=== PATIENT | male | born 1995 | race Caucasian/White ===

== ENCOUNTER 2016-10-28 19:52 | Emergency (ER) | payer MEDICAID ==
[2016-10-28 20:44] LABS: ABSOLUTE BASOPHILS # (AUTO) 0.1 10^3/uL (0.0-0.2); ABSOLUTE EOSINOPHILS # (AUTO) 0.1 10^3/uL (0.0-0.6); ABSOLUTE LYMPHOCYTES (AUTO) 1.7 10^3/uL (0.5-4.7); ABSOLUTE MONOCYTES (AUTO) 0.8 10^3/uL (0.1-1.4); ABSOLUTE NEUT (AUTO) 11.1 10^3/uL (1.7-8.2); BASOPHILS % (AUTO) 0.5 % (0-2); EOSINOPHILS % (AUTO) 0.8 % (0-6); HEMATOCRIT 49.9 % (37.9-51.0); HEMOGLOBIN 16.7 g/dL (13.5-17.0); HGB HCT DIFFERENCE 0.2; LYMPHOCYTES % (AUTO) 12.2 % (13-45); MEAN CORPUSCULAR HEMOGLOBIN 28.8 pg (27.0-33.4); MEAN CORPUSCULAR HGB CONC 33.5 g/dL (32.0-36.0); MEAN CORPUSCULAR VOLUME 86 fl (80-97); MONOCYTES % (AUTO) 5.7 % (3-13); RED BLOOD COUNT 5.82 10^6/uL (4.35-5.55); RED CELL DISTRIBUTION WIDTH 12.4 % (11.5-14.0); SEGMENTED NEUTROPHILS % (AUTO) 80.8 % (42-78); WHITE BLOOD COUNT 13.7 10^3/uL (4.0-10.5)
[2016-10-28 21:11] LABS: ALANINE AMINOTRANSFERASE 59 U/L (21-72); ALBUMIN 4.9 g/dL (3.5-5.0); ALKALINE PHOSPHATASE 60 U/L (38-126); ANION GAP 14 (5-19); ASPARTATE AMINO TRANSFERASE 34 U/L (17-59); BILIRUBIN,DIRECT 0.3 mg/dL (0.0-0.4); BLOOD UREA NITROGEN 19 mg/dL (7-20); CALCIUM 10.1 mg/dL (8.4-10.2); CARBON DIOXIDE 24 mmol/L (22-30); CHLORIDE 105 mmol/L (98-107); CREATININE RESULT 0.83 mg/dL (0.52-1.25); GLUCOSE 138 mg/dL (75-110); POTASSIUM 4.6 mmol/L (3.6-5.0); SODIUM 143.1 mmol/L (137-145); TOTAL PROTEIN 7.9 g/dL (6.3-8.2)
[2016-10-28 21:13] LABS: ALCOHOL < 10 mg/dL (NONE DETECTED)
[2016-10-28] MEDS ORDERED: LORAZEPAM INJ 2 MG/1 ML VIAL IM ONE (22:29)
--- NOTE | 2016-10-28 22:29 | ER Document Report ---
ED Psych Disorder / Suicide - General Mode of Arrival: Medic Information source: Patient, Emergency Med Personnel TRAVEL OUTSIDE OF THE [place] IN LAST 30 DAYS: No - HPI Patient complains to provider of: Overdose Onset: This afternoon - see HPI notes Similar symptoms previously: No Recently seen / treated by doctor: No <ROB WOEN - Last Filed: 10/28/16 23:51> <SKYLER SALDAÑA - Last Filed: 10/29/16 04:52> - General Chief Complaint: Overdose Stated Complaint: POSSIBLE OVERDOSE Time Seen by Provider: 10/28/16 20:24 Notes: Patient is a 21 year old male presenting to the emergency department for Tylenol overdose. Patient took 20 Tylenol Sinus & Cold tablets around 13:00 today. Patient states he was walking around and bought the Tylenol around noon today. Patient denies any abdominal pain. Patient is uncooperative during exam so HPI, and patient history is limited. Patient has a history of bipolar disorder and is not on any medications. Patient states he used to see a counselor in the past. Patient states he drinks EtOH and smokes. Patient was given 50 mg of charcoal at triage. Patient has no known allergies. (ROB OWEN) - Related Data Allergies/Adverse Reactions: No Known Allergies Allergy (Unverified 10/28/16 20:04) Past Medical History - General Information source: Patient - Social History Smoking Status: Current Every Day Smoker Chew tobacco use (# tins/day): No Frequency of alcohol use: Occasional Drug Abuse: None Family History: None Patient has suicidal ideation: Yes Patient has homicidal ideation: No Surgical Hx: Negative <ROB OWEN - Last Filed: 10/28/16 23:51> Review of Systems - Review of Systems Constitutional: No symptoms reported EENT: No symptoms reported Cardiovascular: No symptoms reported Respiratory: No symptoms reported Gastrointestinal: See HPI Genitourinary: No symptoms reported Male Genitourinary: No symptoms reported Musculoskeletal: No symptoms reported Skin: No symptoms reported Hematologic/Lymphatic: No symptoms reported Neurological/Psychological: See HPI -: Yes All other systems reviewed and negative <ROB OWEN - Last Filed: 10/28/16 23:51> Physical Exam - Vital signs Interpretation: Normal - General General appearance: Appears well, Alert In distress: Mild - HEENT Head: Normocephalic, Atraumatic Eyes: Normal Pupils: PERRL Mucous membranes: Moist - Respiratory Respiratory status: No respiratory distress Chest status: Nontender Breath sounds: Normal Chest palpation: Normal - Cardiovascular Rhythm: Regular Heart sounds: Normal auscultation Murmur: No - Abdominal Inspection: Normal Distension: No distension Bowel sounds: Normal Tenderness: Nontender Organomegaly: No organomegaly - Back Back: Normal, Nontender - Extremities General upper extremity: Normal inspection, Normal ROM, Normal strength General lower extremity: Normal inspection, Normal ROM, Normal strength - Neurological Neuro grossly intact: Yes Cognition: Normal Orientation: AAOx4 Phenix Coma Scale Eye Opening: Spontaneous Stefan Coma Scale Verbal: Oriented Stefan Coma Scale Motor: Obeys Commands Phenix Coma Scale Total: 15 Speech: Normal Sensory: Normal - Psychological Associated symptoms: Uncooperative - Skin Skin Temperature: Warm Skin Moisture: Dry <ROB OWEN - Last Filed: 10/28/16 23:51> Course - Laboratory Result Diagrams: 10/28/16 20:25 10/28/16 20:25 <ROB OWEN - Last Filed: 10/28/16 23:51> - Laboratory Result Diagrams: 10/28/16 20:25 10/29/16 01:30 <SKYLER SALDAÑA - Last Filed: 10/29/16 04:52> - Re-evaluation Re-evalutation: 10/28/16 22:30 Patient is a 21-year-old male who comes in after an intentional overdose. Patient is uncooperative with giving history and not forthcoming with information. Apparently has a history of bipolar disorder. Tylenol within normal limits. Patient is trying to leave at this time. Patient has taken out his IV and is demanding to go home. Security present in room. Patient will be sedated and restrained because of his elopement risk. 10/29/16 01:50 Patient is resting comfortably at this time. No further agitation. Restraints have been removed. Patient repeat Tylenol and CMP within normal limits. He is medically stable at this time. He will be seen by mental health services in the morning. (SKYLER SALDAÑA) - Vital Signs Vital signs: Temp Pulse Resp BP Pulse Ox 98.6 F 65 18 140/85 H 97 10/29/16 01:10 10/29/16 03:00 10/29/16 03:00 10/29/16 03:00 10/29/16 03:00 - Laboratory Laboratory results interpreted by me: 10/28/16 10/28/16 10/28/16 20:25 20:25 22:10 WBC 13.7 H RBC 5.82 H Seg Neutrophils % 80.8 H Lymphocytes % 12.2 L Absolute Neutrophils 11.1 H Chloride Glucose 138 H Urine Protein 30 H Urine Bilirubin MODERATE H Urine Ascorbic Acid 40 H Salicylates < 1.0 L Acetaminophen 31 H 10/29/16 01:30 WBC RBC Seg Neutrophils % Lymphocytes % Absolute Neutrophils Chloride 108 H Glucose 114 H Urine Protein Urine Bilirubin Urine Ascorbic Acid Salicylates Acetaminophen Critical Care Note - Critical Care Note Total time excluding time spent on procedures (mins): 45 - Evaluation and management of overdose, multiple re-evaluations, management of agitated psychiatric patient <SKYLER SALDAÑA - Last Filed: 10/29/16 04:52> Discharge <ROB OWEN - Last Filed: 10/28/16 23:51> <SKYLER SALDAÑA - Last Filed: 10/29/16 04:52> - Discharge Clinical Impression: Intentional acetaminophen overdose Qualifiers: Encounter type: initial encounter Qualified Code(s): T39.1X2A - Poisoning by 4- Aminophenol derivatives, intentional self-harm, initial encounter Bipolar disorder Qualifiers: Active/Remission status: currently active Current bipolar episode type: mixed Current episode severity: unspecified Qualified Code(s): F31.60 - Bipolar disorder, current episode mixed, unspecified Condition: Stable Disposition: PSYCH HOSP/UNIT Scribe Attestation: 10/29/16 04:52 I personally performed the services described in the documentation, reviewed and edited the documentation which was dictated to the scribe in my presence, and it accurately records my words and actions. (SKYLER SALDAÑA) Scribe Documentation - Scribe Written by Terrance:: Terrance Donato, 10/29/16 12:00 acting as scribe for :: Lexy <ROB OWEN - Last Filed: 10/28/16 23:51>
[2016-10-28] MEDS ORDERED: HALOPERIDOL LACTATE INJ 5 MG/1 ML VIAL IM ONE (22:30)
[2016-10-28] MEDS ORDERED: LORAZEPAM INJ 2 MG/1 ML VIAL IV ONE (22:58)
[2016-10-28 23:45] LABS: APPEARANCE,URINE CLEAR; BILIRUBIN,URINE MODERATE (NEGATIVE); GLUCOSE, URINE NEGATIVE (NEGATIVE); KETONES,URINE NEGATIVE (NEGATIVE); LEUKOCYTE ESTERASE,URINE NEGATIVE (NEGATIVE); NITRITE,URINE NEGATIVE (NEGATIVE); PROTEIN,URINE 30 mg/dL (NEGATIVE); URINE SPECIFIC GRAVITY 1.043; UROBILINOGEN,URINE NEGATIVE mg/dL (<2.0)
[2016-10-28 23:55] LABS: URINE BARBITURATES SCREEN NEGATIVE; URINE METHADONE SCREEN NEGATIVE; URINE OPIATES LOW NEGATIVE; URINE PHENCYCLIDINE SCREEN NEGATIVE
[2016-10-29 01:52] LABS: ALANINE AMINOTRANSFERASE 43 U/L (21-72); ALBUMIN 4.3 g/dL (3.5-5.0); ALKALINE PHOSPHATASE 51 U/L (38-126); ANION GAP 11 (5-19); ASPARTATE AMINO TRANSFERASE 24 U/L (17-59); BILIRUBIN,DIRECT 0.3 mg/dL (0.0-0.4); BLOOD UREA NITROGEN 19 mg/dL (7-20); CALCIUM 9.7 mg/dL (8.4-10.2); CARBON DIOXIDE 24 mmol/L (22-30); CHLORIDE 108 mmol/L (98-107); CREATININE RESULT 0.83 mg/dL (0.52-1.25); GLUCOSE 114 mg/dL (75-110); POTASSIUM 4.3 mmol/L (3.6-5.0); SODIUM 142.5 mmol/L (137-145)
--- NOTE | 2016-10-29 07:09 | EKG REPORT ---
SEVERITY:- NORMAL ECG - SINUS RHYTHM : Confirmed by: Cristy Rose MD 29-Oct-2016 07:09:02
--- NOTE | 2016-10-29 10:13 | PSYCHOLOGICAL NOTE ---
Psych Note - Psych Note Psych Note: Patient is a 21 year old male presenting to the emergency department for Tylenol overdose. Patient took 20 Tylenol Sinus & Cold tablets around 13:00 today. Patient states he was walking around and bought the Tylenol around noon today. Patient denies any abdominal pain. Patient is uncooperative during exam so HPI, and patient history is limited. Patient has a history of bipolar disorder and is not on any medications. Patient states he used to see a counselor in the past. Patient states he drinks EtOH and smokes. Patient was given 50 mg of charcoal at triage. Patient has no known allergies. Patient states he "took extra Tylenol" because he was stressed. He disclosed he is stressed because his family but refused to elaborate; "I don't want to talk about it." Patient disclosed that he has been in town for 4 weeks with his brother and he is originally for [place]. Patient disclosed he has a diagnosis of bipolar but denies medications, history of attempts, and history of inpatient. He states the last time he saw his [place] provider was about 2 months ago. Patient denies suicidal and homicidal ideation and hallucinations. Patient is alert and orientated to person, place, time and circumstance. Mood is irritable with congruent affect. Patient denies suicidal and homicidal ideation but confirms attempt with Tylenol. Patient denies auditory and visual hallucinations; patient is not demonstration behaviour that is congruent with responding to internal stimuli (i.e. organized thought processes, good attention and concentration). No delusions are noted. Thought processes are organized and linear. Thought content is guarded. Eye contact was poor, patient kept his eye closed throughout the evaluation. Conversational speech is with normal rate, low tone and identified lisp. Intelligence appears to be within average range. Attention and concentration was good. Insight, judgment and impulse control is poor. 296 80 (F31.9) Unspecified Bipolar and Related Disorder per history provided by patient Impression/ plan: Patient is recommended to continue under IVC. Patient will not engage with clinician about events the resulted in his confirmed attempt. Patient is a poor historian and there is no current background information. Patient is recommended for inpatient treatment. Dr. Moreno was consulted on the care and management of this patient; attending physician is in agreement with recommendations and disposition.
[2016-10-29] MEDS ORDERED: NICOTINE 21 MG/24 HR PATCH.TD24 TD ONE (21:39)
[2016-10-29] MEDS: LEVETIRACETAM 500 MG TABLET PO SCH (22:29)
[2016-10-30] MEDS: LEVETIRACETAM 500 MG TABLET PO SCH ×2 (10:39→21:17)
--- NOTE | 2016-10-30 10:51 | ER Document Report ---
Doctor's Note Notes: 10/30/16 10:50 I have evaluated this pt. this am and he has no c/o at this time. He feels all of his needs are being met and his physical exam is normal. He is awaiting disposition per mental health.
--- NOTE | 2016-10-30 14:04 | PSYCHOLOGICAL NOTE ---
Psych Note - Psych Note Psych Note: Patient is a 21 year old male presenting to the emergency department for Tylenol overdose. Patient took 20 Tylenol Sinus & Cold tablets around 13:00 today. Patient states he was walking around and bought the Tylenol around noon today. Patient denies any abdominal pain. Patient is uncooperative during exam so HPI, and patient history is limited. Patient has a history of bipolar disorder and is not on any medications. Patient states he used to see a counselor in the past. Patient states he drinks EtOH and smokes. Patient was given 50 mg of charcoal at triage. Patient has no known allergies. Clinician conducted a check in with patient Patient states he is feeling different, when asked for clarification, he stated "good." When asked how the patient feels when reflecting of the events that resulted in the patient needing to come into the ED, he stated "I feel nothing. " When asked to clarification he stated it was a family thing. He then stated it was just an argument between him and his brother. Patient is alert and orientated to person, place, time and circumstance. Mood is irritable with congruent affect. Patient denies suicidal and homicidal ideation but confirms attempt with Tylenol. Patient denies auditory and visual hallucinations; patient is not demonstration behaviour that is congruent with responding to internal stimuli (i.e. organized thought processes, good attention and concentration). No delusions are noted. Thought processes are organized and linear. Thought content is guarded. Eye contact was poor, patient kept his eye closed throughout the evaluation. Conversational speech is with normal rate, low tone and identified lisp. Intelligence appears to be within average range. Attention and concentration was good. Insight, judgment and impulse control is poor. 296 80 (F31.9) Unspecified Bipolar and Related Disorder per history provided by patient Impression/ plan: Patient is recommended to continue under IVC. Patient will not engage with clinician about events the resulted in his confirmed attempt. Patient is a poor historian and there is no current background information. Patient is recommended for inpatient treatment. Dr. Moreno was consulted on the care and management of this patient; attending physician is in agreement with recommendations and disposition.
--- NOTE | 2016-10-31 09:38 | ER Document Report ---
Doctor's Note Notes: 10/31/16 09:38 I have evaluated this patient this am and has no c/o at this time. Feels all of their needs are being met and physical exam is normal. Awaiting dispositon per mental health. 10/31/16 17:29 Pt seen and evaluated by Mental Health. Patient said that he did not want to kill himself and that this was a knee-jerk reaction to stress. He is medically cleared and has a follow-up appointment with a mental health worker in [place]. He is going home with his brother.
[2016-10-31] MEDS: LEVETIRACETAM 500 MG TABLET PO SCH (10:27)
--- NOTE | 2016-10-31 17:23 | PSYCHOLOGICAL NOTE ---
Psych Note - Psych Note Psych Note: Conducted check in with patient who is a 21 year old male under IVC at [facility] due to intentional suicide attempt. Patient this evening states he was not trying to kill himself, but is also unable to verbalize his intent behind the overdose. Patient denies any prior suicide attempt. Patient states he lives in [place] with his parents, specifically with his mother who is his guardian, and was here in [place] visiting his brother. Patient states he was upset over family matters. He did eventually disclose that he was upset with his brother, but did not provide any additional information. 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 Patient denies states he goes to see someone (in reference to a therapist or Psychiatrist) every once in a while. Patient provided verbal consent to speak with his mother, as well as his brother; however, could only provide his mother' s phone number Mother, Priscilla Ch states: the patient wanted to go with his brother and visit. He states he went and stayed at their home, and her son ( patient's brother) went out in the field) and patient stayed with his sister-in- law. Mother states that while there, the patient reportedly went through all their belongings and found his brother's old phone. Mother states that the patient got upset when his [id number] asked him to put it back, and he called her to pick him up.She states she is a police captain and cannot just leave. She states to her knowledge he left after that, and shut off his phone and purchased pills at [facility]. Mother states the patient has done this in the past. She states they love him and they signed him out of the system, and plan on providing him a forever home. 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 Mother states that anytime the patient steals something and gets caught, he does something like this. Mother reports she knows the patient does not want to , and states she would like him to be discharged to one of her other sons. Mother states her son is visiting [place]/other son and if he can be discharge to him, he will drive him back home. She states she will contact her sons and ask them to come to the ED. Patient is A&O. Mood is euthymic with flat affect. Patient denies SI/HI. Patient denies A/V H; delusions not noted. Thought processes were guarded. Conversational speech had a definite impediment. Intellectual abilities were reported by mother as moderate MR. Attention and focus were fair. Insight, judgment, and impulse control were poor. 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 Patient's mother, who has been fostering and now harbouring patient for the past 5 years states she knows he does not want to , and that this is a "knee jerk" reaction due to his low functioning when he gets caught and is embarrassed. Patient no longer meets criteria for IVC as he denies SI.HI. Patient is to be discharged to his brother, who will transport him back home tomorrow. Patient will not be allowed access to any pills in any of the homes. Mother states she will take the patient back to his therapist upon his return to [place]. I consulted with Dr. Moreno in regards to the care and management of the patient.
[2016-10-31 17:41] VITALS: BP 139/71
== END 2016-10-31 17:41 | disposition home or self-care (01) ==
LOC: ER 19:52
DX: T39.1X2A Poisoning by 4-Aminophenol derivatives, intentional self-harm, initial encounter (principal); F31.60 Bipolar disorder, current episode mixed, unspecified; F17.200 Nicotine dependence, unspecified, uncomplicated; Z78.1 Physical restraint status
CPT/HCPCS: 93005; 99285; 96372; 36415; 80307 ×4; 85025; 80053; 81001; 93010; J2060